=== PATIENT | male | born 1975 | race Caucasian/White ===

== ENCOUNTER 2018-02-19 13:40 | Emergency (ER) | payer OTHER ==
[~2018-02-19 13:40] MED LIST: LISI-613 PO
== END 2018-02-19 14:50 | disposition home or self-care (01) ==
LOC: EDH 13:40
DX: Z46.6 Encounter for fitting and adjustment of urinary device (principal); I10 Essential (primary) hypertension; Z98.890 Other specified postprocedural states; Z72.0 Tobacco use

== ENCOUNTER → 2018-07-12 | Outpatient (CLI) | payer OTHER ==
[~2018-07-12] MED LIST changes: +ACET-66 PO; +LEVO500T2 PO; -LISI-613 PO; +SACU1TAB PO; +SOLI10TA PO
== END | disposition home or self-care (01) ==
LOC: RAH 08:12
PROVIDERS: ATTEND Urology
DX: N13.2 Hydronephrosis with renal and ureteral calculous obstruction (principal)
CPT/HCPCS: 74176

== ENCOUNTER 2018-07-28 08:03 | Day surgery (SDC) | payer OTHER ==
[2018-07-26 15:00] VITALS: BP 114/71
[2018-07-26 15:03] LABS: BASOPHILS % (AUTO) 0.9 % (0.0-5.0); EOSINOPHILS % (AUTO) 2.8 % (0.0-8.0); HEMATOCRIT 42.3 % (42-54); LYMPHOCYTES % (AUTO) 17.4 % (21.0-51.0); MEAN CORPUSCULAR HEMOGLOBIN 26.4 pg (27.0-33.0); MEAN CORPUSCULAR HGB CONC 32.7 g/dL (32.0-36.0); MEAN CORPUSCULAR VOLUME 80.9 fL (79-99); MONOCYTES % (AUTO) 10.8 % (3.0-13.0); NEUTROPHILS % (AUTO) 68.1 % (40.0-77.0); PLATELET COUNT (AUTO) 275 K/uL (130-400); RED BLOOD CELL COUNT(AUTO) 5.23 MIL/uL (4.50-6.20); RED CELL DISTRIBUTION WIDTH 19.1 % (11.0-15.5); WHITE BLOOD COUNT (AUTO) 5.2 K/uL (4.8-10.8)
[2018-07-26 15:04] LABS: APPEARANCE,URINE Clear (CLEAR); BILIRUBIN,URINE Negative (NEGATIVE); COLOR,URINE Yellow (YELLOW); GLUCOSE, URINE (UA) Negative (NEGATIVE); KETONES,URINE Negative (NEGATIVE); LEUKOCYTE ESTERASE ,URINE Large (NEGATIVE); NITRATE,URINE Negative (NEGATIVE); OCCULT BLOOD,URINE Moderate (NEGATIVE); PROTEIN,URINE Negative (NEGATIVE)
[2018-07-26 15:11] LABS: CREATININE 0.7 mg/dL (0.5-1.5); POTASSIUM 4.1 mmol/L (3.5-5.1)
[2018-07-26 15:21] LABS: BACTERIA,URINE Rare /HPF (None Seen); SQUAMOUS EPITHELIAL CELL,UR Few /HPF (0-2)
--- NOTE | 2018-07-27 08:32 | NUR ---
LATE ENTRY: 07/26/17 @[address] LEMA'S OFFICE TO CLARIFY ORDER OF CXR, NO KUB, SPOKE TO YOLANDA. PER YOLANDA, DR. LEMA STATED THE ORDER IS CORRECT IT IS, NO CHANGES.
[~2018-07-28] VITALS: Ht 180.3 cm; Wt 165.6 kg
[2018-07-28] VITALS (15 sets, daily range): BP systolic 109–138; BP diastolic 58–85
[~2018-07-28 08:03] MED LIST changes: +CHOL100040 PO; +GENTAMICIN SULFATE IV PRN; -LEVO500T2 PO; +SODIUM CHLORIDE 0.9% IV PRN
[2018-07-28] MEDS ORDERED: LACTATED RINGERS 1000ML 1,000 ML IV ONE (08:41)
[2018-07-28] MEDS ORDERED: GENTAMICIN SULFATE 320 MG in SODIUM CHLORIDE 0.9% 100 ML IV SCH (08:45)
[2018-07-28] MEDS: ZOSYN 3.375GM+NS 50ML 50 ML IV SCH ×2 (08:45→10:40)
--- NOTE | 2018-07-28 08:49 | NUR ---
NOTE MID LOWER RIGHT LEG WITH SKIN TEAR. SEVERE LYMPHEDEMA TO RIGHT LEG. Addendum: 07/28/18 at 0851 by MG CHILDERS RN RN Amended: Links added.
--- NOTE | 2018-07-28 08:50 | NUR ---
NOTE PT IS ON A SCHEDULE TO SELF CATH. Addendum: 07/28/18 at 0851 by MG CHILDERS RN RN Amended: Links added.
[2018-07-28] MEDS ORDERED: AMOX1TAB15 PO (08:55)
[2018-07-28] MEDS ORDERED: CALC-866 PO (08:55)
[2018-07-28] MEDS ORDERED: FLUC150T6 PO (08:55)
[2018-07-28] MEDS ORDERED: CARV6.25 PO (08:55)
[2018-07-28] MEDS ORDERED: IOHEXOL-350 50ML VIAL IV ONE (09:32)
[2018-07-28] MEDS ORDERED: FENTANYL CITRATE PF 50 MCG/1 ML 2ML VIAL ONE ×4 (09:58→12:31)
[2018-07-28] MEDS ORDERED: LIDOCAINE PF 2% 5ML ABBOJECT ONE (09:58)
[2018-07-28] MEDS ORDERED: PROPOFOL 10 MG/ML 20ML VIAL IV ONE (09:58)
[2018-07-28] MEDS ORDERED: GLYCOPYRROLATE 1 MG/5 ML SYRINGE ONE (11:14)
[2018-07-28] MEDS ORDERED: EPHEDRINE SULFATE 50 MG/ML AMPULE ONE (11:17)
[2018-07-28] MEDS ORDERED: KETOROLAC TROMETHAMINE 30MG/ML ONE (12:29)
--- NOTE | 2018-07-28 14:10 | NUR ---
ASSESSMENT RECEIVED PT FROM PACU STAFF Osmani RODRIGUEZ RN. PT DOING WELL. SEVERE SWELLING TO LOWER EXTREMITIES. SKIN TEAR TO RIGHT POPLITEAL AREA. STATES " HOME HEALTH NURSE DIDN'T PUT ERIC WRAP ON RIGHT." DRSG TO PENIS DRY AND INTACT. STRINGS NOTED TO BE IN PLACE. PT SELF CATHS. INSTRUCTED ON IMPORTANCE OF DRINKING FLUIDS.
--- NOTE | 2018-07-28 14:55 | NUR ---
DISCHARGE ORAL AND WRITTEN DISCHARGE INSTRUCTIONS GIVEN TO PT AND PTS MOTHER ALONG WITH PRESCRIPTION. INSTRUCTED ON IMPORTANCE OF NOT PULLING ON BLACK STRING SO STENT WOULD NOT BE DISCONTINUED. BOTH VERBALIZED UNDERSTANDING. NO OTHER QUESTIONS AT THIS TIME.
--- NOTE | 2018-07-28 16:30 | NUR ---
PT SELF CATHS Addendum: 07/28/18 at 1631 by RENE AMAYA RN RN Amended: Links added.
--- NOTE | 2018-07-28 16:30 | NUR ---
TO LOWER EXTREMITIES Addendum: 07/28/18 at 1631 by RENE AMAYA RN RN Amended: Links added.
== END 2018-07-28 15:00 | disposition home or self-care (01) ==
LOC: DAH 08:03
PROVIDERS: ATTEND Urology
DX: N20.0 Calculus of kidney (principal); E66.01 Morbid (severe) obesity due to excess calories; E78.5 Hyperlipidemia, unspecified; Z98.890 Other specified postprocedural states; Z79.899 Other long term (current) drug therapy; M19.90 Unspecified osteoarthritis, unspecified site; R56.9 Unspecified convulsions; I10 Essential (primary) hypertension; G47.30 Sleep apnea, unspecified
CPT/HCPCS: 36415; 52356; 76000; 80048; 81001; 85025; 87088; A4354; A4358; A4600; A4649 ×2; A6207; C1758; C1769 ×2; C1894; C2617; J1580; J1885; J2001; J2543; J2704; J3010 ×4; J3490 ×2; J7030; J7120; Q9967

== ENCOUNTER → 2018-12-19 | Outpatient (CLI) | payer OTHER ==
[~2018-12-19] MED LIST changes: +AMOX1TAB15 PO; +CALC-866 PO; +CARV6.25 PO; -CHOL100040 PO; +FLUC150T6 PO; -GENTAMICIN SULFATE IV PRN; -SODIUM CHLORIDE 0.9% IV PRN
== END | disposition home or self-care (01) ==
LOC: RAH 09:38
PROVIDERS: ATTEND Urology
DX: N20.0 Calculus of kidney (principal); Z87.442 Personal history of urinary calculi
CPT/HCPCS: 74176

== ENCOUNTER 2019-02-05 09:51 | Inpatient (IN) | payer OTHER ==
[~2019-02-05] VITALS: Ht 180.3 cm; Wt 177.9 kg
[2019-02-05] MEDS ORDERED: MORPHINE SULFATE 4 MG/1ML SYG ONE ×2 (10:25→13:07)
[2019-02-05] MEDS ORDERED: ONDANSETRON HCL 4 MG/2 ML VIAL ONE (10:25)
[2019-02-05 10:27] LABS: BASOPHILS % (AUTO) 0.5 % (0.0-5.0); EOSINOPHILS % (AUTO) 2.4 % (0.0-8.0); HEMATOCRIT 38.7 % (42-54); LYMPHOCYTES % (AUTO) 11.9 % (21.0-51.0); MEAN CORPUSCULAR HGB CONC 34.1 g/dL (32.0-36.0); MEAN CORPUSCULAR VOLUME 82.2 fL (79-99); MONOCYTES % (AUTO) 10.9 % (3.0-13.0); NEUTROPHILS % (AUTO) 74.3 % (40.0-77.0); PLATELET COUNT (AUTO) 328 K/uL (130-400); RED BLOOD CELL COUNT(AUTO) 4.71 MIL/uL (4.50-6.20); RED CELL DISTRIBUTION WIDTH 17.1 % (11.0-15.5); WHITE BLOOD COUNT (AUTO) 9.3 K/uL (4.8-10.8)
[2019-02-05 10:51] LABS: BILIRUBIN,TOTAL 0.3 mg/dL (0.2-1.0); CREATININE 0.9 mg/dL (0.5-1.5); POTASSIUM 4.1 mmol/L (3.5-5.1); TOTAL PROTEIN, SERUM 7.6 g/dL (6.0-8.3)
[2019-02-05] MEDS ORDERED: KETOROLAC TROMETHAMINE 30MG/ML ONE (11:39)
[2019-02-05 11:49] LABS: APPEARANCE,URINE Turbid (CLEAR); BILIRUBIN,URINE Negative (NEGATIVE); COLOR,URINE Yellow (YELLOW); GLUCOSE, URINE (UA) Negative (NEGATIVE); KETONES,URINE Negative (NEGATIVE); LEUKOCYTE ESTERASE ,URINE Large (NEGATIVE); NITRATE,URINE Positive (NEGATIVE); OCCULT BLOOD,URINE Large (NEGATIVE); PROTEIN,URINE POS 2+ mg/dL (NEGATIVE)
[2019-02-05 12:01] LABS: AMORPHOUS SEDIMENT,UR Few /LPF (None Seen); BACTERIA,URINE Many /HPF (None Seen); CALCIUM OXALATE CRYSTALS,UR Few /LPF (None Seen); RBC,URINE >100 /HPF (0-1); TRANSITIONAL EPI CELLS,URINE Few /HPF (None Seen); WBC,URINE >100 /HPF (0-1)
[2019-02-05] MEDS ORDERED: CEFTRIAXONE SODIUM 1 GM ONE (13:07)
[2019-02-05] MEDS ORDERED: SODIUM CHLORIDE 0.9% 50 ML IV ONE (13:08)
[2019-02-05] MEDS ORDERED: SODIUM CHLORIDE 0.9% 1000ML 1,000 ML IV ONE (13:08)
[2019-02-05] MEDS ORDERED: MORPHINE SULFATE 2 MG/ML 1ML SYG IV PRN (14:30)
[2019-02-05] MEDS ORDERED: HYDROMORPHONE HCL 0.5 MG/0.5 ML ML IV PRN (14:30)
[2019-02-05] MEDS: CEFTRIAXONE SODIUM 1 GM IV SCH (14:30)
[2019-02-05] MEDS ORDERED: ACETAMINOPHEN 325 MG TAB PO PRN (14:30)
[2019-02-05] MEDS ORDERED: HYDRALAZINE HCL 20 MG/ML VIAL IV PRN (14:30)
[2019-02-05] MEDS ORDERED: ONDANSETRON HCL 4 MG/2 ML VIAL IV PRN (14:30)
--- NOTE | 2019-02-05 15:25 | NUR ---
DR. GRIGGS PAGED AT THIS TIME, SOFTBALL COACH SPOKE MD ROMAIN PENDING TO CALL BACK, NURSING WILL CONTINUE TO FOLLOW UP.
[2019-02-05] MEDS: SODIUM CHLORIDE 0.9% 1000ML 1,000 ML IV SCH (15:28)
[2019-02-05 15:48] VITALS: BP 143/104
[2019-02-05] MEDS: PHENAZOPYRIDINE HCL 200 MG TABLET PO SCH (17:30)
[2019-02-05] MEDS: FAMOTIDINE 20MG TAB 20 MG TAB PO SCH (19:34)
[2019-02-05] MEDS: TERAZOSIN HCL 5 MG CAPSULE PO SCH (19:34)
[2019-02-05 19:42] VITALS: BP 133/86
[2019-02-06 00:22] VITALS: BP 102/56
[2019-02-06] MEDS: SODIUM CHLORIDE 0.9% 1000ML 1,000 ML IV SCH ×3 (00:48→20:27)
[2019-02-06 04:23] VITALS: BP 115/16
[2019-02-06 06:26] LABS: BASOPHILS % (AUTO) 0.3 % (0.0-5.0); EOSINOPHILS % (AUTO) 0.1 % (0.0-8.0); HEMATOCRIT 37.2 % (42-54); LYMPHOCYTES % (AUTO) 3.7 % (21.0-51.0); MEAN CORPUSCULAR HEMOGLOBIN 27.4 pg (27.0-33.0); MEAN CORPUSCULAR HGB CONC 32.8 g/dL (32.0-36.0); MEAN CORPUSCULAR VOLUME 83.6 fL (79-99); MONOCYTES % (AUTO) 6.3 % (3.0-13.0); NEUTROPHILS % (AUTO) 89.6 % (40.0-77.0); PLATELET COUNT (AUTO) 260 K/uL (130-400); RED BLOOD CELL COUNT(AUTO) 4.45 MIL/uL (4.50-6.20); RED CELL DISTRIBUTION WIDTH 17.1 % (11.0-15.5); WHITE BLOOD COUNT (AUTO) 17.8 K/uL (4.8-10.8)
[2019-02-06 06:39] LABS: CREATININE 1.1 mg/dL (0.5-1.5)
[2019-02-06 07:30] VITALS: BP 115/51
[2019-02-06] MEDS ORDERED: IOHEXOL 350 MG/ML 100ML INFUS..BTL IV ONE (08:38)
--- NOTE | 2019-02-06 09:07 | NUR ---
call dr. connolly's office for the consult since dr. lagunas wanted the service transfer. the office of dr. connolly was notified already
[2019-02-06] MEDS: ENOXAPARIN SODIUM 40 MG/0.4 ML SYRINGE SQ SCH (10:23)
[2019-02-06] MEDS: TAMSULOSIN HCL 0.4 MG CAP.ER.24H PO SCH (10:24)
[2019-02-06] MEDS: PHENAZOPYRIDINE HCL 200 MG TABLET PO SCH ×3 (10:25→17:36)
[2019-02-06] MEDS: FAMOTIDINE 20MG TAB 20 MG TAB PO SCH ×2 (10:25→22:27)
[2019-02-06 11:00] VITALS: BP 137/68
--- NOTE | 2019-02-06 11:00 | NUR ---
pt is having seepage from dressing on right posterior leg ; i have removed the dressing, there is a very foul odor coming from dressing and wound; i cleansed with normal saline then applied 2 abd pads, 4x4 gauze and wrapped with kerlix; 2nd nurse assisted by holding up his leg; pt cindy. proc. well with no c/o pain. pt does have a large area of skin that is putting off the odor and seeping ; pt has dry scaly skin on other parts of his leg. pt has a 2nd smaller ulcer on the back of his left leg that is approx. the size of a quarter and skin is intact and pink in appearance.
--- NOTE | 2019-02-06 12:30 | NUR ---
DR. LEMA RECOMMENDED TO LEAVE THE GARCIA CATH ON HIM.
--- NOTE | 2019-02-06 13:36 | NUR ---
DCP CM met with pt discussed dc plans. Pt is mostly independent w/ADL's prior to admission, lives at home with mother. Pt is a wheelchair bound, has wheelchair, walker, shower chair, home care [employer] h/h once a week. Denies any equipments/services. Pt feels safe to go back home, mother able to assist with transportation and needs as necessary. DC plan to home once stable. CM to cont to follow up. Addendum: 02/06/19 at 1342 by ALEJA IBARRA LVN CM Amended: Links added.
[2019-02-06] MEDS ORDERED: SODIUM CHLORIDE 0.9% 10 ML VIAL ONE (15:25)
--- NOTE | 2019-02-06 15:32 | NUR ---
[facility] CONSULT PATIENT ASSESSED REQUESTED: PATIENT PRESENTS WITH ULCER TO RT CALF POSTERIOR; [facility] RECOMMENDATIONS SUBMITTED. Addendum: 02/06/19 at 1533 by KRISSY DONNELLY LVN LVN W Amended: Links added.
[2019-02-06] MEDS: CEFTRIAXONE SODIUM 1 GM IV SCH (15:37)
[2019-02-06] MEDS: ACETAMINOPHEN-CODEINE 300/30MG TAB PO PRN (15:45)
[2019-02-06 16:00] VITALS: BP 118/72
[2019-02-06] MEDS: HONEY 1 APPL/ML TUBE TP SCH (19:00)
[2019-02-06 20:00] VITALS: BP 120/61
[2019-02-06] MEDS: TERAZOSIN HCL 5 MG CAPSULE PO SCH (22:27)
--- NOTE | 2019-02-06 23:00 | NUR ---
REFUSED BATH WITH PCP. ASKED PATIENT IF HE WANTED TO TAKE A BATH IN THE AM, SAID HE DID NOT ONE, WILL WAIT UNTIL HE IS AT HOME.
[2019-02-07] VITALS: BP 123/53
[2019-02-07 04:00] VITALS: BP 132/62
[2019-02-07 06:01] LABS: HEMATOCRIT 33.2 % (42-54); MEAN CORPUSCULAR HEMOGLOBIN 27.8 pg (27.0-33.0); MEAN CORPUSCULAR HGB CONC 33.7 g/dL (32.0-36.0); MEAN CORPUSCULAR VOLUME 82.5 fL (79-99); PLATELET COUNT (AUTO) 246 K/uL (130-400); RED BLOOD CELL COUNT(AUTO) 4.02 MIL/uL (4.50-6.20); WHITE BLOOD COUNT (AUTO) 9.4 K/uL (4.8-10.8)
[2019-02-07 06:17] LABS: CREATININE 0.8 mg/dL (0.5-1.5); POTASSIUM 3.6 mmol/L (3.5-5.1)
[2019-02-07] MEDS: SODIUM CHLORIDE 0.9% 1000ML 1,000 ML IV SCH (06:27)
[2019-02-07 07:00] VITALS: BP 130/66
[2019-02-07] MEDS: TAMSULOSIN HCL 0.4 MG CAP.ER.24H PO SCH (08:44)
[2019-02-07] MEDS: FAMOTIDINE 20MG TAB 20 MG TAB PO SCH (08:44)
[2019-02-07] MEDS: PHENAZOPYRIDINE HCL 200 MG TABLET PO SCH ×3 (08:45→17:26)
[2019-02-07] MEDS: ENOXAPARIN SODIUM 40 MG/0.4 ML SYRINGE SQ SCH (08:45)
[2019-02-07] MEDS: ACETAMINOPHEN-CODEINE 300/30MG TAB PO PRN (08:56)
[2019-02-07] MEDS ORDERED: **HM** ENTRESTO 24-26MG PO SCH (09:00)
[2019-02-07] MEDS ORDERED: CARVEDILOL 6.25 MG TABLET PO SCH (09:00)
[2019-02-07 11:00] VITALS: BP 143/68
[2019-02-07] MEDS ORDERED: TAMS-1 PO (13:28)
[2019-02-07] MEDS ORDERED: SULF1TAB42 PO (13:28)
--- NOTE | 2019-02-07 14:05 | NUR ---
RD Notification Pt admitted for Ureterlithiasis, UTI. Pt PMH of DM, HTN, Stage III Obesity. Pt tolerating current diet order of Heart Healthy Diet, as per Pt. Pt PO intake 50-75%. Pt reports no GI distress. Pt reports headache at time of visit. Possible diet education at follow up. RD recommends 75gm CC to diet order secondary to PMH of DM. Also recommend Jorge L BID for wound healing Support Recommend Vitamin C and ZnSO4 daily for wound healing support. Pt LBM 02/05/19. Pt monitored labs: Glu 129, Ca 8.3, Alb 3.0. RD to continue to monitor. Please notify RD as additional nutrition concerns arise. Addendum: 02/07/19 at [address] Amended: Links added.
[2019-02-07] MEDS: CEFTRIAXONE SODIUM 1 GM IV SCH (14:30)
[2019-02-07] MEDS: HONEY 1 APPL/ML TUBE TP SCH (17:26)
--- NOTE | 2019-02-07 17:35 | NUR ---
iv access removed and dressing changed to right back leg and medihoney applied to the wound, d/c picture of wound taken
[2019-02-07] MEDS ORDERED: **HM** VIT D3 5000 UNITS PO SCH (21:00)
== END 2019-02-07 17:45 | disposition home or self-care (01) | DRG 690 ==
LOC: EDH 09:51 → EDHIP 12:57 → OBSVTOIN 12:57 → 3AH 14:42
PROVIDERS: ADMIT Internal Medicine Pulmonary Disease; ATTEND Internal Medicine Pulmonary Disease
DX: N13.6 Pyonephrosis (principal); Z68.43 Body mass index [BMI] 50.0-59.9, adult; L97.219 Non-pressure chronic ulcer of right calf with unspecified severity; Q05.4 Unspecified spina bifida with hydrocephalus; K59.00 Constipation, unspecified; I89.0 Lymphedema, not elsewhere classified; E11.9 Type 2 diabetes mellitus without complications; E66.01 Morbid (severe) obesity due to excess calories; F12.90 Cannabis use, unspecified, uncomplicated; N32.81 Overactive bladder; G89.29 Other chronic pain; I10 Essential (primary) hypertension; M19.90 Unspecified osteoarthritis, unspecified site; M41.9 Scoliosis, unspecified; N31.9 Neuromuscular dysfunction of bladder, unspecified; Z99.3 Dependence on wheelchair; Z87.442 Personal history of urinary calculi; Z98.2 Presence of cerebrospinal fluid drainage device; Q66.89 Other specified congenital deformities of feet; Z79.899 Other long term (current) drug therapy
CPT/HCPCS: 36415; 74176; 74400; 80048; 80053; 81001; 82948; 83036; 85025; 85027; 87077; 87088; 87186; 93970; 97039; G0378; J0360; J0696; J1170; J1650; J1885; J2270; J2405; J7030; Q9967

== ENCOUNTER → 2019-02-27 | Outpatient (CLI) | payer OTHER ==
[~2019-02-27] MED LIST changes: -ACET-66 PO; -AMOX1TAB15 PO; -FLUC150T6 PO; -SOLI10TA PO; +SULF1TAB42 PO; +TAMS-1 PO
== END | disposition home or self-care (01) ==
LOC: SHCH 09:53
PROVIDERS: ATTEND Internal Medicine Cardiovascular Disease
DX: I11.0 Hypertensive heart disease with heart failure (principal); I50.22 Chronic systolic (congestive) heart failure; G47.33 Obstructive sleep apnea (adult) (pediatric)
CPT/HCPCS: 78481; A9512

== ENCOUNTER → 2020-02-02 | Outpatient (CLI) | payer OTHER | END | disposition home or self-care (01) | LOC: RAH 12:35 | PROVIDERS: ATTEND Urology | DX: N20.0 Calculus of kidney (principal); M47.816 Spondylosis without myelopathy or radiculopathy, lumbar region | CPT/HCPCS: 74176 ==

== ENCOUNTER 2020-11-02 11:43 | Observation (INO) | payer OTHER ==
[~2020-11-02] VITALS: Ht 180.3 cm; Wt 158.8 kg
[2020-11-02 12:00] VITALS: BP 115/56
[2020-11-02] MEDS ORDERED: HYDROCODONE/ACETAMINOPHEN 10/325 MG TAB PO SCH (12:30)
[2020-11-02 13:51] LABS: BASOPHILS % (AUTO) 0.4 % (0.0-5.0); EOSINOPHILS % (AUTO) 2.1 % (0.0-8.0); HEMATOCRIT 37.1 % (42-54); LYMPHOCYTES % (AUTO) 11.9 % (21.0-51.0); MEAN CORPUSCULAR HEMOGLOBIN 25.1 pg (27.0-33.0); MEAN CORPUSCULAR HGB CONC 30.2 g/dL (32.0-36.0); MEAN CORPUSCULAR VOLUME 83.2 fL (79-99); MONOCYTES % (AUTO) 10.3 % (3.0-13.0); NEUTROPHILS % (AUTO) 74.9 % (40.0-77.0); PLATELET COUNT (AUTO) 301 K/uL (130-400); RED BLOOD CELL COUNT(AUTO) 4.46 MIL/uL (4.50-6.20); RED CELL DISTRIBUTION WIDTH 18.5 % (11.0-15.5); WHITE BLOOD COUNT (AUTO) 10.1 K/uL (4.8-10.8)
[2020-11-02 14:04] LABS: CREATININE 0.7 mg/dL (0.5-1.5); POTASSIUM 3.8 mmol/L (3.5-5.1)
[2020-11-02 14:08] LABS: ALBUMIN 2.4 g/dL (3.5-5.0); BILIRUBIN,TOTAL 0.4 mg/dL (0.2-1.0); CRP QUANTITATIVE 111.1 mg/L (0.00-9.0); TOTAL PROTEIN, SERUM 7.1 g/dL (6.0-8.3)
[2020-11-02 14:26] LABS: B-TYPE NATRIURETIC PEPTIDE 13 pg/mL (0-100)
[2020-11-02] MEDS ORDERED: CLONIDINE HCL 0.1 MG TABLET PO PRN (17:30)
[2020-11-02] MEDS ORDERED: DOCUSATE SODIUM 100 MG CAP PO PRN (17:30)
[2020-11-02] MEDS ORDERED: VANCOMYCIN PROTOCOL PER PHARMACY IV SCH (17:30)
[2020-11-02] MEDS ORDERED: FUROSEMIDE 40MG VIAL IV ONE (17:30)
[2020-11-02] MEDS ORDERED: LIDOCAINE HCL-MPF 1% 2ML VIAL IV PRN (17:30)
[2020-11-02] MEDS ORDERED: DEXTROSE 50%-WATER 50 ML DISP.SYRIN IV PRN (17:30)
[2020-11-02] MEDS ORDERED: ACETAMINOPHEN 650 MG SUPPOSITORY RC PRN (17:30)
[2020-11-02] MEDS ORDERED: GLUCAGON 1MG KIT 1 MG ML IM PRN (17:30)
[2020-11-02] MEDS ORDERED: POTASSIUM CHLORIDE 20MEQ/100ML 100 ML IV PRN (17:30)
[2020-11-02] MEDS ORDERED: POTASSIUM CHLORIDE 10% ELIXIR 20 MEQ/15 ML UDCUP PO PRN (17:30)
[2020-11-02] MEDS ORDERED: ALBUTEROL 0.083% 2.5 MG/3 ML INH IH PRN (17:30)
[2020-11-02] MEDS ORDERED: COMPOUND IV REFRIGERATED 1 EACH IVSOLN MISC PRN (17:30)
[2020-11-02] MEDS ORDERED: ONDANSETRON 4MG INJ IVP PRN (17:30)
[2020-11-02] MEDS ORDERED: ACETAMINOPHEN 325 MG TAB PO PRN (17:30)
[2020-11-02] MEDS ORDERED: IOHEXOL-350 75 ML VIAL IV ONE (17:49)
[2020-11-02] MEDS ORDERED: VANCOMYCIN 2GM/500ML NS IV ONE ×2 (18:00)
[2020-11-02 18:18] VITALS: BP 135/81
[2020-11-02 18:37] LABS: ABG BASE EXCESS 2.1 mmol/L (-2.0-3.0); ABG HCO3 27.1 mmol/L (21.0-28.0); ABG OXYGEN SATURATION 92.1 % (95.0-99.0); ABG PCO2 44 mmHg (35-48)
[2020-11-02] MEDS ORDERED: IOHEXOL 350 MG/ML 100ML INFUS..BTL IV ONE (18:41)
[2020-11-02 19:15] VITALS: BP 130/60
[2020-11-02] MEDS: INSULIN HUMULIN R 100 UNIT/ML 3ML SQ SCH (20:47)
[2020-11-02] MEDS: FAMOTIDINE 20MG TAB PO SCH (20:53)
[2020-11-02] MEDS: ZOSYN 3.375GM +NS 50ML IV SCH (22:19)
[2020-11-03 01:10] LABS: APPEARANCE,URINE Cloudy (CLEAR); BILIRUBIN,URINE Negative (NEGATIVE); COLOR,URINE Yellow (YELLOW); GLUCOSE, URINE (UA) Negative (NEGATIVE); KETONES,URINE Negative (NEGATIVE); LEUKOCYTE ESTERASE ,URINE Large (NEGATIVE); NITRATE,URINE Positive (NEGATIVE); OCCULT BLOOD,URINE Moderate (NEGATIVE); PROTEIN,URINE Negative (NEGATIVE)
[2020-11-03] MEDS: VANCOMYCIN KIT 1 GM/250 ML IV.KIT IV SCH ×3 (01:16→18:04)
[2020-11-03] MEDS: 0.9% NACL 250ML 250 ML IV SCH ×3 (01:17→18:04)
[2020-11-03 01:19] LABS: AMPHET/METH SCREEN,URINE NEGATIVE (NEGATIVE); BARBITURATE SCREEN, URINE NEGATIVE (NEGATIVE); BENZODIAZEPINES SCREEN,URINE NEGATIVE (NEGATIVE); CANNABINOID SCREEN,URINE POSITIVE (NEGATIVE); COCAINE SCREEN,URINE NEGATIVE (NEGATIVE); OPIATE SCREEN,URINE NEGATIVE (NEGATIVE); PHENCYCLIDINE SCREEN,URINE NEGATIVE (NEGATIVE)
[2020-11-03 02:23] LABS: BACTERIA,URINE Moderate /HPF (None Seen); RBC,URINE 0-1 /HPF (0-1); WBC,URINE 51-100 /HPF (0-1)
[2020-11-03 02:24] LABS: SQUAMOUS EPITHELIAL CELL,UR 0-2 /HPF (0-2)
[2020-11-03 03:39] VITALS: BP 128/58
[2020-11-03] MEDS ORDERED: 0.9%NACL 50ML 50 ML IV ONE (05:08)
[2020-11-03] MEDS: ZOSYN 3.375GM +NS 50ML IV SCH ×3 (05:21→21:05)
[2020-11-03 05:51] LABS: ABG BASE EXCESS 1.7 mmol/L (-2.0-3.0); ABG HCO3 26.8 mmol/L (21.0-28.0); ABG OXYGEN SATURATION 97.3 % (95.0-99.0); ABG PCO2 44 mmHg (35-48)
[2020-11-03 05:54] LABS: HEMATOCRIT 35.1 % (42-54); MEAN CORPUSCULAR HGB CONC 29.9 g/dL (32.0-36.0); MEAN CORPUSCULAR VOLUME 83.6 fL (79-99); RED BLOOD CELL COUNT(AUTO) 4.2 MIL/uL (4.50-6.20); RED CELL DISTRIBUTION WIDTH 18.6 % (11.0-15.5)
[2020-11-03 06:08] LABS: CREATININE 0.7 mg/dL (0.5-1.5); MAGNESIUM 2.1 mg/dL (1.80-2.40); PHOSPHORUS 4.2 mg/dL (2.5-4.9); POTASSIUM 3.5 mmol/L (3.5-5.1)
[2020-11-03] MEDS: INSULIN HUMULIN R 100 UNIT/ML 3ML SQ SCH ×4 (06:10→21:00)
[2020-11-03 06:17] LABS: PROTHROMBIN TIME 10.9 SEC (9.6-11.6)
[2020-11-03 06:32] LABS: HEMOGLOBIN A1C 7.9 % (4.0-6.0)
[2020-11-03 08:00] VITALS: BP 129/70
[2020-11-03] MEDS: CARVEDILOL 25 MG TABLET PO SCH ×2 (10:35→21:06)
[2020-11-03] MEDS: ENOXAPARIN SODIUM 40 MG/0.4 ML SYRINGE SQ SCH (10:35)
[2020-11-03] MEDS: FAMOTIDINE 20MG TAB PO SCH ×2 (10:35→21:07)
[2020-11-03] MEDS: KCL 20 MEQ ERTAB PO PRN (10:42)
[2020-11-03 12:00] VITALS: BP 116/60
[2020-11-03] MEDS ORDERED: FUROSEMIDE 40MG VIAL IV SCH (12:00)
[2020-11-03] MEDS: KETOROLAC 30MG VIAL (30MG/ML) IM PRN ×2 (12:43→22:08)
[2020-11-03 16:00] VITALS: BP 119/65
[2020-11-03 20:47] VITALS: BP 107/54
[2020-11-03] MEDS: FUROSEMIDE 20MG VIAL IV SCH (21:05)
[2020-11-04] VITALS (7 sets, daily range): BP systolic 94–124; BP diastolic 25–64
[2020-11-04] MEDS: VANCOMYCIN KIT 1 GM/250 ML IV.KIT IV SCH ×3 (02:05→19:35)
[2020-11-04] MEDS: 0.9% NACL 250ML 250 ML IV SCH ×3 (02:05→19:35)
[2020-11-04] MEDS: ZOSYN 3.375GM +NS 50ML IV SCH ×3 (04:30→21:18)
[2020-11-04] MEDS: INSULIN HUMULIN R 100 UNIT/ML 3ML SQ SCH ×4 (05:59→21:21)
[2020-11-04] MEDS ORDERED: FLAX100020 PO (07:52)
[2020-11-04] MEDS ORDERED: CARV25TA PO (07:52)
[2020-11-04] MEDS: CARVEDILOL 25 MG TABLET PO SCH ×2 (09:00→21:19)
[2020-11-04] MEDS ORDERED: VALSARTAN PO SCH (09:00)
[2020-11-04] MEDS: FLAXSEED OIL 1000 MG PO SCH ×2 (09:00→21:00)
[2020-11-04] MEDS ORDERED: SACUBITRIL PO SCH (09:00)
[2020-11-04] MEDS: FUROSEMIDE 20MG VIAL IV SCH ×2 (10:35→21:18)
[2020-11-04] MEDS: FAMOTIDINE 20MG TAB PO SCH ×2 (10:35→21:19)
[2020-11-04] MEDS: ENOXAPARIN SODIUM 40 MG/0.4 ML SYRINGE SQ SCH (10:35)
[2020-11-04] MEDS: KCL 20 MEQ ERTAB PO PRN ×3 (15:08→21:19)
[2020-11-04] MEDS: HYDROCODONE/ACETAMINOPHEN 10/325 MG TAB PO PRN ×2 (15:08→21:20)
[2020-11-04] MEDS ORDERED: DOXY100C5 PO (17:54)
[2020-11-04] MEDS ORDERED: FURO40TA7 PO (17:54)
[2020-11-04] MEDS ORDERED: VALS40TA11 PO (17:58)
[2020-11-04] MEDS ORDERED: CARV12.580 PO (18:00)
[2020-11-04] MEDS: CHOLECALCIFEROL 5000 UNIT PO SCH (21:00)
[2020-11-05] VITALS (7 sets, daily range): BP systolic 82–133; BP diastolic 35–68
[2020-11-05] MEDS: 0.9% NACL 250ML 250 ML IV SCH ×2 (01:52→08:34)
[2020-11-05] MEDS: VANCOMYCIN KIT 1 GM/250 ML IV.KIT IV SCH ×2 (01:52→08:34)
[2020-11-05 04:18] LABS: CREATININE 0.8 mg/dL (0.5-1.5); POTASSIUM 3.8 mmol/L (3.5-5.1)
[2020-11-05] MEDS: ZOSYN 3.375GM +NS 50ML IV SCH ×2 (04:57→12:02)
[2020-11-05] MEDS: INSULIN HUMULIN R 100 UNIT/ML 3ML SQ SCH ×2 (06:13→11:23)
[2020-11-05] MEDS: FAMOTIDINE 20MG TAB PO SCH (08:33)
[2020-11-05] MEDS: FUROSEMIDE 20MG VIAL IV SCH (08:34)
[2020-11-05] MEDS: FLAXSEED OIL 1000 MG PO SCH (08:35)
[2020-11-05] MEDS: ENOXAPARIN SODIUM 40 MG/0.4 ML SYRINGE SQ SCH (08:35)
[2020-11-05] MEDS ORDERED: LOSARTAN 50 MG TABLET PO SCH (09:00)
[2020-11-05] MEDS: KETOROLAC 30MG VIAL (30MG/ML) IM PRN (15:01)
== END 2020-11-05 19:10 | disposition home or self-care (01) ==
LOC: EDH 11:43 → OBSVTOIN 17:10 → EDHIP 17:10 → INTOOBSV 17:10 → 4BH 23:45
PROVIDERS: ADMIT Internal Medicine Critical Care Medicine; ATTEND Internal Medicine Critical Care Medicine
DX: J18.9 Pneumonia, unspecified organism (principal); Z20.822 Contact with and (suspected) exposure to COVID-19; I50.9 Heart failure, unspecified; G47.33 Obstructive sleep apnea (adult) (pediatric); I25.10 Atherosclerotic heart disease of native coronary artery without angina pectoris; I89.0 Lymphedema, not elsewhere classified; M41.9 Scoliosis, unspecified; J98.4 Other disorders of lung; Q05.9 Spina bifida, unspecified; N39.0 Urinary tract infection, site not specified; Q66.89 Other specified congenital deformities of feet; I83.009 Varicose veins of unspecified lower extremity with ulcer of unspecified site; F31.9 Bipolar disorder, unspecified; E11.9 Type 2 diabetes mellitus without complications; R60.0 Localized edema; Z79.899 Other long term (current) drug therapy; Z98.2 Presence of cerebrospinal fluid drainage device
CPT/HCPCS: 36415 ×4; 36600; 71045; 71275; 80048 ×2; 80053; 80202 ×2; 80305; 81001; 82435; 82803 ×2; 82947; 82948 ×12; 83036; 83605; 83735; 83880; 84100; 84132; 84145; 84295; 84484; 85018; 85025; 85027; 85610; 86140; 87040 ×2; 87077; 87088; 87186; 87635; 87804 ×2; 93005 ×2; 93306; 93970; 94660 ×2; 96365; 96366 ×4; 96367; 96368; 96372 ×3; 96375; 96376 ×3; 99285; C9803; G0378 ×73; J1650 ×3; J1815; J1885 ×3; J1940 ×6; J2543 ×9; J3370 ×9; J7040; J7050 ×6; Q9967

== ENCOUNTER 2020-11-17 00:34 | Observation (INO) | payer OTHER ==
[~2020-11-17] VITALS: Ht 180.3 cm; Wt 154.2 kg
[~2020-11-17 00:34] MED LIST changes: +CARV12.580 PO; +CARV25TA PO; -CARV6.25 PO; +DOXY100C2 PO; +FLAX100020 PO; +FURO40TA7 PO; -SACU1TAB PO; -SULF1TAB42 PO; -TAMS-1 PO; +VALS40TA11 PO
[2020-11-17 00:35] VITALS: BP 139/68
[2020-11-17 01:37] VITALS: BP 131/61
[2020-11-17] MEDS ORDERED: FUROSEMIDE 100MG VIAL IVP ONE (02:30)
[2020-11-17] MEDS ORDERED: FUROSEMIDE 40MG VIAL ONE (02:40)
[2020-11-17 03:36] LABS: BASOPHILS % (AUTO) 0.4 % (0.0-5.0); HEMATOCRIT 36.3 % (42-54); LYMPHOCYTES % (AUTO) 14.9 % (21.0-51.0); MEAN CORPUSCULAR HEMOGLOBIN 24.6 pg (27.0-33.0); MEAN CORPUSCULAR HGB CONC 30.6 g/dL (32.0-36.0); MEAN CORPUSCULAR VOLUME 80.5 fL (79-99); MONOCYTES % (AUTO) 10.2 % (3.0-13.0); NEUTROPHILS % (AUTO) 69.9 % (40.0-77.0); PLATELET COUNT (AUTO) 357 K/uL (130-400); RED BLOOD CELL COUNT(AUTO) 4.51 MIL/uL (4.50-6.20); RED CELL DISTRIBUTION WIDTH 18.5 % (11.0-15.5); WHITE BLOOD COUNT (AUTO) 9.9 K/uL (4.8-10.8)
[2020-11-17 03:39] LABS: APPEARANCE,URINE Cloudy (CLEAR); BILIRUBIN,URINE Negative (NEGATIVE); COLOR,URINE Yellow (YELLOW); GLUCOSE, URINE (UA) Negative (NEGATIVE); KETONES,URINE Negative (NEGATIVE); LEUKOCYTE ESTERASE ,URINE Large (NEGATIVE); NITRATE,URINE Positive (NEGATIVE); OCCULT BLOOD,URINE Small (NEGATIVE); PROTEIN,URINE Trace mg/dL (NEGATIVE)
[2020-11-17 03:48] LABS: POTASSIUM 3.4 mmol/L (3.5-5.1)
[2020-11-17 03:52] LABS: ALBUMIN 2.4 g/dL (3.5-5.0); BILIRUBIN,TOTAL 0.2 mg/dL (0.2-1.0); TOTAL PROTEIN, SERUM 6.9 g/dL (6.0-8.3)
[2020-11-17 04:03] LABS: BACTERIA,URINE Many /HPF (None Seen); SQUAMOUS EPITHELIAL CELL,UR Rare /HPF (0-2); WBC,URINE 26-50 /HPF (0-1)
[2020-11-17] MEDS ORDERED: VANCOMYCIN KIT 250 ML IV ONE (05:00)
[2020-11-17] MEDS ORDERED: VANCOMYCIN 1G VIAL IVPB SCH (05:00)
[2020-11-17] MEDS ORDERED: 0.9% NACL 250ML IVPB SCH (05:00)
[2020-11-17] MEDS ORDERED: VANCOMYCIN PROTOCOL PER PHARMACY IV SCH (05:00)
[2020-11-17] MEDS ORDERED: 0.9%NACL 100ML 100 ML ONE ×2 (05:29→14:45)
[2020-11-17] MEDS ORDERED: ONDANSETRON 4MG INJ IV PRN (05:30)
[2020-11-17] MEDS ORDERED: HYDRALAZINE HCL 10 MG TABLET PO PRN (05:30)
[2020-11-17] MEDS: CEFEPIME HCL 2 GM VIAL IVP SCH ×3 (05:30→20:21)
[2020-11-17] MEDS ORDERED: MAG/ALUM/SIMETH 30 ML UDCUP PO PRN (05:30)
[2020-11-17] MEDS ORDERED: LACTULOSE 20 GM/30 ML UDCUP PO PRN (05:30)
[2020-11-17] MEDS ORDERED: KCL 20 MEQ ERTAB PO ONE (05:30)
[2020-11-17] MEDS ORDERED: ACETAMINOPHEN 325 MG TAB PO PRN ×2 (05:30)
[2020-11-17] MEDS ORDERED: NITROGLYCERIN 0.4 MG SL TAB SL PRN (05:30)
[2020-11-17] MEDS ORDERED: DEXTROSE 50%-WATER 50 ML DISP.SYRIN IV PRN (05:30)
[2020-11-17] MEDS ORDERED: POTASSIUM CHLORIDE 20MEQ/100ML 100 ML IV PRN (05:30)
[2020-11-17] MEDS ORDERED: GLUCAGON 1MG KIT 1 MG ML IM PRN (05:30)
[2020-11-17] MEDS ORDERED: ZOLPIDEM TARTRATE 5 MG TAB PO PRN (05:30)
[2020-11-17] MEDS ORDERED: POTASSIUM CHLORIDE 10% ELIXIR 20 MEQ/15 ML UDCUP PO PRN (05:30)
[2020-11-17] MEDS ORDERED: GUAIFENESIN-DM 200/20 MG 10 ML PO PRN (05:30)
[2020-11-17] MEDS: ACETAMINOPHEN WITH CODEINE 1 TAB TAB PO PRN ×2 (05:52→20:23)
[2020-11-17] MEDS: HEPARIN 5,000 UNIT VIAL SQ SCH ×2 (05:59→18:13)
[2020-11-17 06:07] VITALS: BP 107/46
[2020-11-17] MEDS: INSULIN HUMULIN R 100 UNIT/ML 3ML SQ SCH ×4 (07:30→20:22)
[2020-11-17] MEDS ORDERED: COMPOUND IV REFRIGERATED 1 EACH IVSOLN MISC PRN (07:30)
[2020-11-17] MEDS ORDERED: VANCOMYCIN 2GM/500ML NS IV SCH ×2 (07:30)
[2020-11-17] MEDS: FUROSEMIDE 40 MG TABLET PO SCH (09:00)
[2020-11-17] MEDS: CARVEDILOL 25 MG TABLET PO SCH ×2 (09:00→20:21)
[2020-11-17] MEDS: FLAXSEED OIL 1000 MG PO SCH ×2 (09:00→20:21)
[2020-11-17] MEDS ORDERED: HEPARIN 5,000 UNIT VIAL SQ SCH (09:00)
[2020-11-17] MEDS: LOSARTAN 25 MG TABLET PO SCH (09:00)
[2020-11-17] MEDS: PANTOPRAZOLE 40 MG/VIAL IVP SCH ×2 (09:00→20:20)
[2020-11-17] MEDS: VANCOMYCIN 1.75GM/250ML NS IV SCH ×4 (14:00→21:14)
[2020-11-17 16:00] VITALS: BP 107/57
[2020-11-17 19:34] VITALS: BP 111/56
[2020-11-17] MEDS: CHOLECALCIFEROL 5000 UNIT PO SCH (20:21)
[2020-11-17 22:20] VITALS: BP 104/51
[2020-11-17] MEDS ORDERED: PIP/TAZ ZOSYN 3.375G 3.375 GM VIAL IVPB SCH (22:30)
[2020-11-17] MEDS: ZOSYN 3.375GM+NS 50ML 50 ML IV SCH (23:41)
[2020-11-18 03:52] VITALS: BP 124/54
[2020-11-18] MEDS: VANCOMYCIN 1.75GM/250ML NS IV SCH ×6 (06:00→21:43)
[2020-11-18] MEDS: HEPARIN 5,000 UNIT VIAL SQ SCH ×2 (06:01→18:06)
[2020-11-18] MEDS: ZOSYN 3.375GM+NS 50ML 50 ML IV SCH ×3 (06:37→21:43)
[2020-11-18] MEDS: INSULIN HUMULIN R 100 UNIT/ML 3ML SQ SCH ×4 (06:55→20:09)
[2020-11-18 07:30] VITALS: BP 109/66
[2020-11-18 07:50] LABS: HEMATOCRIT 36.1 % (42-54); MEAN CORPUSCULAR HEMOGLOBIN 24.5 pg (27.0-33.0); MEAN CORPUSCULAR HGB CONC 29.6 g/dL (32.0-36.0); MEAN CORPUSCULAR VOLUME 82.8 fL (79-99); RED BLOOD CELL COUNT(AUTO) 4.36 MIL/uL (4.50-6.20); RED CELL DISTRIBUTION WIDTH 18.6 % (11.0-15.5); WHITE BLOOD COUNT (AUTO) 7.3 K/uL (4.8-10.8)
[2020-11-18 08:02] LABS: CREATININE 0.8 mg/dL (0.5-1.5); POTASSIUM 3.7 mmol/L (3.5-5.1)
[2020-11-18] MEDS: FLAXSEED OIL 1000 MG PO SCH ×2 (09:00→21:06)
[2020-11-18] MEDS: LOSARTAN 25 MG TABLET PO SCH (09:52)
[2020-11-18] MEDS: CARVEDILOL 25 MG TABLET PO SCH ×2 (09:53→21:05)
[2020-11-18] MEDS: PANTOPRAZOLE 40 MG/VIAL IVP SCH ×2 (09:53→21:04)
[2020-11-18] MEDS: FUROSEMIDE 40 MG TABLET PO SCH (09:59)
[2020-11-18 11:00] VITALS: BP 139/59
[2020-11-18 16:00] VITALS: BP 108/61
[2020-11-18] MEDS: KCL 20 MEQ ERTAB PO PRN ×2 (18:04→21:05)
[2020-11-18 20:00] VITALS: BP 108/58
[2020-11-18] MEDS: ACETAMINOPHEN WITH CODEINE 1 TAB TAB PO PRN (21:05)
[2020-11-18] MEDS: SODIUM HYPOCHLORITE 0.5% [FULL STRENGTH] 473 ML TOPICAL SOLN TP SCH (21:06)
[2020-11-18] MEDS: CHOLECALCIFEROL 5000 UNIT PO SCH (21:06)
[2020-11-19] VITALS (7 sets, daily range): BP systolic 98–115; BP diastolic 43–63
[2020-11-19] MEDS: ACETAMINOPHEN WITH CODEINE 1 TAB TAB PO PRN ×2 (02:59→23:32)
[2020-11-19] MEDS: INSULIN HUMULIN R 100 UNIT/ML 3ML SQ SCH ×4 (06:02→21:00)
[2020-11-19] MEDS: ZOSYN 3.375GM+NS 50ML 50 ML IV SCH ×3 (06:05→23:43)
[2020-11-19] MEDS: HEPARIN 5,000 UNIT VIAL SQ SCH (06:06)
[2020-11-19] MEDS: VANCOMYCIN 1.75GM/250ML NS IV SCH ×6 (06:53→15:19)
[2020-11-19] MEDS: FLAXSEED OIL 1000 MG PO SCH ×2 (09:00→21:00)
[2020-11-19] MEDS: PANTOPRAZOLE 40 MG/VIAL IVP SCH ×2 (09:50→20:15)
[2020-11-19] MEDS: FUROSEMIDE 40 MG TABLET PO SCH (09:51)
[2020-11-19] MEDS: LOSARTAN 25 MG TABLET PO SCH (09:51)
[2020-11-19] MEDS: CARVEDILOL 25 MG TABLET PO SCH ×2 (09:52→20:24)
[2020-11-19] MEDS: SODIUM HYPOCHLORITE 0.5% [FULL STRENGTH] 473 ML TOPICAL SOLN TP SCH ×3 (09:53→21:00)
[2020-11-19] MEDS: VANCOMYCIN 1G 1.5 GM in 0.9% NACL 250ML 250 ML IV SCH ×2 (15:21→23:34)
[2020-11-19] MEDS ORDERED: LACTULOSE 20 GM/30 ML UDCUP PO PRN (15:30)
[2020-11-19] MEDS ORDERED: HONEY 1 APPL/ML TUBE TP ONE (18:19)
[2020-11-19] MEDS: CHOLECALCIFEROL 5000 UNIT PO SCH (21:00)
[2020-11-20] MEDS: HEPARIN 5,000 UNIT VIAL SQ SCH (00:02)
[2020-11-20 03:37] VITALS: BP 110/52
[2020-11-20 05:29] LABS: HEMATOCRIT 34.2 % (42-54); MEAN CORPUSCULAR HEMOGLOBIN 24.6 pg (27.0-33.0); MEAN CORPUSCULAR HGB CONC 29.8 g/dL (32.0-36.0); MEAN CORPUSCULAR VOLUME 82.6 fL (79-99); RED BLOOD CELL COUNT(AUTO) 4.14 MIL/uL (4.50-6.20); RED CELL DISTRIBUTION WIDTH 18.1 % (11.0-15.5); WHITE BLOOD COUNT (AUTO) 6.8 K/uL (4.8-10.8)
[2020-11-20 05:37] LABS: POTASSIUM 3.8 mmol/L (3.5-5.1)
[2020-11-20 05:56] LABS: CREATININE 0.7 mg/dL (0.5-1.5)
[2020-11-20] MEDS: ZOSYN 3.375GM+NS 50ML 50 ML IV SCH (06:32)
[2020-11-20] MEDS: INSULIN HUMULIN R 100 UNIT/ML 3ML SQ SCH (06:33)
[2020-11-20] MEDS: PANTOPRAZOLE 40 MG/VIAL IVP SCH (08:54)
[2020-11-20] MEDS: LOSARTAN 25 MG TABLET PO SCH (08:55)
[2020-11-20] MEDS: FUROSEMIDE 40 MG TABLET PO SCH (08:55)
[2020-11-20] MEDS: CARVEDILOL 25 MG TABLET PO SCH (08:56)
[2020-11-20] MEDS: SODIUM HYPOCHLORITE 0.5% [FULL STRENGTH] 473 ML TOPICAL SOLN TP SCH ×2 (09:00→14:00)
[2020-11-20] MEDS ORDERED: HONEY 1 APPL/ML TUBE TP SCH (09:00)
[2020-11-20] MEDS: FLAXSEED OIL 1000 MG PO SCH (09:00)
[2020-11-20 09:15] VITALS: BP 109/41
[2020-11-20 11:48] VITALS: BP 118/51
[2020-11-20] MEDS: VANCOMYCIN 1G 1.5 GM in 0.9% NACL 250ML 250 ML IV SCH (14:00)
== END 2020-11-20 18:50 ==
LOC: EDH 00:34 → EDHIP 04:42 → 3DH 21:35
PROVIDERS: ADMIT Internal Medicine Critical Care Medicine; ATTEND Internal Medicine Critical Care Medicine
DX: I83.019 Varicose veins of right lower extremity with ulcer of unspecified site (principal); Z20.822 Contact with and (suspected) exposure to COVID-19; I83.028 Varicose veins of left lower extremity with ulcer other part of lower leg; L97.819 Non-pressure chronic ulcer of other part of right lower leg with unspecified severity; L97.828 Non-pressure chronic ulcer of other part of left lower leg with other specified severity; E66.2 Morbid (severe) obesity with alveolar hypoventilation; Q66.89 Other specified congenital deformities of feet; I10 Essential (primary) hypertension; E11.9 Type 2 diabetes mellitus without complications; M41.9 Scoliosis, unspecified; Q05.9 Spina bifida, unspecified; N39.0 Urinary tract infection, site not specified; B96.1 Klebsiella pneumoniae [K. pneumoniae] as the cause of diseases classified elsewhere; R33.8 Other retention of urine; J98.4 Other disorders of lung; E78.00 Pure hypercholesterolemia, unspecified; F12.90 Cannabis use, unspecified, uncomplicated; F31.9 Bipolar disorder, unspecified; Z79.899 Other long term (current) drug therapy; Z98.890 Other specified postprocedural states; Z68.42 Body mass index [BMI] 45.0-49.9, adult
CPT/HCPCS: 36415 ×4; 71045; 72131; 80048 ×2; 80053; 80202 ×3; 81001; 82948 ×13; 83880; 84443; 84484; 85025; 85027 ×2; 87077; 87088; 87186; 87635; 87804 ×2; 93005; 96365; 96366 ×4; 96367; 96372 ×4; 96375; 96376 ×4; 97039; 97161; 97530 ×2; 99285; C9113 ×7; G0378 ×84; G8981; G8982; G8983; J0692 ×2; J1644 ×6; J1815; J1940 ×2; J2543 ×8; J3370 ×6; J7040; J7050 ×5

== ENCOUNTER 2021-08-08 13:10 | Emergency (ER) | payer OTHER ==
[~2021-08-08] VITALS: Ht 180.3 cm; Wt 208.7 kg
[2021-08-08] MEDS ORDERED: LIDOCAINE HCL MPF 1% 5ML VIAL ONE (13:36)
[2021-08-08] MEDS ORDERED: TETANUS/DIPHTHERIA TOXOID [ADULT] 0.5 ML VIAL IM ONE (14:00)
[2021-08-08] MEDS ORDERED: CEPHALEXIN 500 MG CAPSULE PO ONE (14:00)
[2021-08-08] MEDS ORDERED: CEPH500B PO (14:25)
[2021-08-08 15:21] VITALS: BP 144/88
== END 2021-08-08 15:22 | disposition home or self-care (01) ==
LOC: EDH 13:10
DX: S81.812A Laceration without foreign body, left lower leg, initial encounter (principal); E11.9 Type 2 diabetes mellitus without complications; E78.00 Pure hypercholesterolemia, unspecified; I10 Essential (primary) hypertension; Z98.890 Other specified postprocedural states; W26.9XXA Contact with unspecified sharp object(s), initial encounter; Y93.9 Activity, unspecified; Y92.9 Unspecified place or not applicable; Y99.9 Unspecified external cause status
CPT/HCPCS: 12002; 90471; 90714; 99283; J3490; 96372

== ENCOUNTER 2021-08-22 12:43 | Inpatient (IN) | payer OTHER ==
[~2021-08-22] VITALS: Ht 180.3 cm; Wt 207.6 kg
[~2021-08-22 12:43] MED LIST changes: -CALC-866 PO; -CARV12.580 PO; -CARV25TA PO; +CEPH500B PO; -DOXY100C2 PO; -FLAX100020 PO; -FURO40TA7 PO; -VALS40TA11 PO
[2021-08-22 13:22] LABS: BASOPHILS % (AUTO) 0.5 % (0.0-5.0); EOSINOPHILS % (AUTO) 0.9 % (0.0-8.0); HEMATOCRIT 37.5 % (42-54); LYMPHOCYTES % (AUTO) 25.6 % (21.0-51.0); MEAN CORPUSCULAR HEMOGLOBIN 27.9 pg (27.0-33.0); MEAN CORPUSCULAR HGB CONC 30.4 g/dL (32.0-36.0); MEAN CORPUSCULAR VOLUME 91.7 fL (79-99); MONOCYTES % (AUTO) 12.7 % (3.0-13.0); NEUTROPHILS % (AUTO) 58.7 % (40.0-77.0); NUCLEATED RED BLOOD CELLS 4.1 % (0.0-0.19); PLATELET COUNT (AUTO) 283 K/uL (130-400); RED BLOOD CELL COUNT(AUTO) 4.09 MIL/uL (4.50-6.20); WHITE BLOOD COUNT (AUTO) 8.1 K/uL (4.8-10.8)
[2021-08-22 13:52] LABS: CREATININE 0.6 mg/dL (0.5-1.5); POTASSIUM 3.7 mmol/L (3.5-5.1)
[2021-08-22 13:55] LABS: APPEARANCE,URINE CLOUDY (CLEAR); BILIRUBIN,URINE NEGATIVE (NEGATIVE); COLOR,URINE YELLOW (YELLOW); GLUCOSE, URINE (UA) NEGATIVE (NEGATIVE); KETONES,URINE NEGATIVE (NEGATIVE); LEUKOCYTE ESTERASE ,URINE LARGE (NEGATIVE); NITRATE,URINE NEGATIVE (NEGATIVE); OCCULT BLOOD,URINE LARGE (NEGATIVE); PH,URINE 7.5 (5.0-8.0); PROTEIN,URINE 100 mg/dL (NEGATIVE)
[2021-08-22 13:57] LABS: ALBUMIN 2.5 g/dL (3.5-5.0); BILIRUBIN,TOTAL 0.8 mg/dL (0.2-1.0); PROTHROMBIN TIME 10.9 SEC (9.6-11.6); TOTAL PROTEIN, SERUM 6.8 g/dL (6.0-8.3)
[2021-08-22 13:59] LABS: PARTIAL THROMBOPLASTIN TIME 24.2 SEC (26.3-35.5)
[2021-08-22 14:26] LABS: ABG BASE EXCESS 1.3 mmol/L (-2.0-3.0); ABG HCO3 32.5 mmol/L (21.0-28.0); ABG OXYGEN SATURATION 96.9 % (95.0-99.0); ABG PCO2 87 mmHg (35-48)
[2021-08-22] MEDS ORDERED: CEFTRIAXONE 2GM VIAL ONE (14:26)
[2021-08-22 14:27] LABS: BACTERIA,URINE Many /HPF (None Seen)
[2021-08-22 14:29] LABS: TRIPLE PHOSPHATE CRYSTAL,UR Few /LPF (None Seen)
[2021-08-22] MEDS ORDERED: CEFTRIAXONE 2GM VIAL IVP SCH (14:30)
[2021-08-22] MEDS ORDERED: ONDANSETRON 4MG INJ IVP PRN (16:30)
[2021-08-22] MEDS ORDERED: IPRATROPIUM/ALBUTEROL SULFATE 3 ML SOLUTION IH PRN (16:30)
[2021-08-22] MEDS: SOLU-MEDROL 125MG VIAL IVP SCH (16:38)
[2021-08-22] MEDS: FAMOTIDINE 20MG VIAL IV SCH (20:46)
[2021-08-22 21:47] LABS: ABG BASE EXCESS 7.5 mmol/L (-2.0-3.0); ABG HCO3 37.6 mmol/L (21.0-28.0); ABG OXYGEN SATURATION 90.6 % (95.0-99.0); ABG PCO2 86 mmHg (35-48)
[2021-08-22] MEDS: CEFTRIAXONE 1G VIAL IVP SCH (21:56)
[2021-08-22 22:45] VITALS: BP 131/60
[2021-08-23] MEDS ORDERED: 0.9% NACL 250ML 250 ML ONE ×2 (00:12→08:29)
[2021-08-23] MEDS: SOLU-MEDROL 125MG VIAL IVP SCH ×2 (00:15→08:40)
[2021-08-23] MEDS: ENOXAPARIN SODIUM 40 MG/0.4 ML SYRINGE SQ SCH ×2 (03:00→09:00)
[2021-08-23] MEDS ORDERED: NITROGLYCERIN 0.4 MG SL TAB SL PRN (03:30)
[2021-08-23] MEDS ORDERED: HYDRALAZINE HCL 10 MG TABLET PO PRN (03:30)
[2021-08-23] MEDS ORDERED: GUAIFENESIN-DM 200/20 MG 10 ML PO PRN (03:30)
[2021-08-23] MEDS ORDERED: MAG/ALUM/SIMETH 30 ML UDCUP PO PRN (03:30)
[2021-08-23] MEDS ORDERED: LABETALOL 20MG SYG IV PRN (03:30)
[2021-08-23] MEDS ORDERED: LACTULOSE 20 GM/30 ML UDCUP PO PRN (03:30)
[2021-08-23] MEDS ORDERED: ACETAMINOPHEN 325 MG TAB PO PRN (03:30)
[2021-08-23] MEDS ORDERED: ONDANSETRON 4MG INJ IV PRN (03:30)
[2021-08-23 03:36] LABS: ABG BASE EXCESS 3.5 mmol/L (-2.0-3.0); ABG HCO3 31.1 mmol/L (21.0-28.0); ABG OXYGEN SATURATION 95.1 % (95.0-99.0); ABG PCO2 60 mmHg (35-48)
[2021-08-23 04:02] VITALS: BP 129/67
[2021-08-23 05:00] LABS: BASOPHILS % (AUTO) 0.5 % (0.0-5.0); LYMPHOCYTES % (AUTO) 29.8 % (21.0-51.0); MEAN CORPUSCULAR HGB CONC 29.7 g/dL (32.0-36.0); MEAN CORPUSCULAR VOLUME 94.1 fL (79-99); MONOCYTES % (AUTO) 4.6 % (3.0-13.0); NEUTROPHILS % (AUTO) 63.6 % (40.0-77.0); NUCLEATED RED BLOOD CELLS 1.8 % (0.0-0.19); PLATELET COUNT (AUTO) 283 K/uL (130-400); RED BLOOD CELL COUNT(AUTO) 4.04 MIL/uL (4.50-6.20); WHITE BLOOD COUNT (AUTO) 7.8 K/uL (4.8-10.8)
[2021-08-23] MEDS ORDERED: ENOXAPARIN SODIUM 100 MG/1 ML SQ ONE (05:30)
[2021-08-23 05:33] LABS: B-TYPE NATRIURETIC PEPTIDE 23 pg/mL (0-100)
[2021-08-23 05:38] LABS: ALBUMIN 2.5 g/dL (3.5-5.0); BILIRUBIN,TOTAL 0.5 mg/dL (0.2-1.0); CREATININE 0.6 mg/dL (0.5-1.5); MAGNESIUM 2.3 mg/dL (1.80-2.40); POTASSIUM 4.5 mmol/L (3.5-5.1); TOTAL PROTEIN, SERUM 6.9 g/dL (6.0-8.3)
[2021-08-23] MEDS: CEFTRIAXONE 1G VIAL IVP SCH ×3 (05:45→23:28)
[2021-08-23 08:00] VITALS: BP 112/52
[2021-08-23] MEDS: FUROSEMIDE 40MG VIAL IV SCH (08:40)
[2021-08-23] MEDS: FAMOTIDINE 20MG VIAL IV SCH ×2 (08:41→20:42)
[2021-08-23] MEDS: AZITHROMYCIN 500MG+NS 250ML IV SCH (08:41)
[2021-08-23] MEDS ORDERED: ENOXAPARIN SODIUM 40 MG/0.4 ML SYRINGE SQ SCH (09:00)
[2021-08-23] MEDS: CARVEDILOL 25 MG TABLET PO SCH ×2 (09:00→20:41)
[2021-08-23 12:00] VITALS: BP 115/57
[2021-08-23] MEDS: SACUBITRIL/VALSARTAN 1 EACH TABLET PO SCH (15:18)
[2021-08-23 16:00] VITALS: BP 114/58
[2021-08-23] MEDS: ACETAMINOPHEN 325 MG TAB PO PRN (18:20)
[2021-08-23 20:00] VITALS: BP 105/55
[2021-08-24] VITALS: BP 127/54
[2021-08-24 04:00] VITALS: BP 98/68
[2021-08-24 04:18] LABS: HEMATOCRIT 36.5 % (42-54); MEAN CORPUSCULAR HEMOGLOBIN 27.3 pg (27.0-33.0); MEAN CORPUSCULAR HGB CONC 29.6 g/dL (32.0-36.0); MEAN CORPUSCULAR VOLUME 92.2 fL (79-99); NUCLEATED RED BLOOD CELLS 0.9 % (0.0-0.19); RED BLOOD CELL COUNT(AUTO) 3.96 MIL/uL (4.50-6.20); RED CELL DISTRIBUTION WIDTH 22.5 % (11.0-15.5); WHITE BLOOD COUNT (AUTO) 6.9 K/uL (4.8-10.8)
[2021-08-24 04:23] LABS: CREATININE 0.6 mg/dL (0.5-1.5); MAGNESIUM 2.2 mg/dL (1.80-2.40); PHOSPHORUS 2.4 mg/dL (2.5-4.9); POTASSIUM 3.5 mmol/L (3.5-5.1)
[2021-08-24] MEDS: CEFTRIAXONE 1G VIAL IVP SCH ×3 (06:14→21:27)
[2021-08-24 08:13] VITALS: BP 127/50
[2021-08-24] MEDS: CARVEDILOL 25 MG TABLET PO SCH ×2 (09:49→21:27)
[2021-08-24] MEDS: ENOXAPARIN SODIUM 40 MG/0.4 ML SYRINGE SQ SCH (09:49)
[2021-08-24] MEDS: AZITHROMYCIN 500MG+NS 250ML IV SCH (09:50)
[2021-08-24] MEDS: FUROSEMIDE 40MG VIAL IV SCH (09:50)
[2021-08-24] MEDS: FAMOTIDINE 20MG VIAL IV SCH ×2 (09:50→21:26)
[2021-08-24 11:21] VITALS: BP 120/60
[2021-08-24] MEDS: SACUBITRIL/VALSARTAN 1 EACH TABLET PO SCH (14:58)
[2021-08-24 16:13] VITALS: BP 123/54
[2021-08-24 19:28] LABS: ABG BASE EXCESS 9.2 mmol/L (-2.0-3.0); ABG OXYGEN SATURATION 89.8 % (95.0-99.0); ABG PCO2 52 mmHg (35-48)
[2021-08-24 20:00] VITALS: BP 127/87
[2021-08-25] VITALS (7 sets, daily range): BP systolic 106–129; BP diastolic 45–72
[2021-08-25] MEDS ORDERED: IOHEXOL 350 MG/ML 100ML INFUS..BTL IV ONE (00:19)
[2021-08-25 04:33] LABS: BASOPHILS % (AUTO) 0.6 % (0.0-5.0); EOSINOPHILS % (AUTO) 1.9 % (0.0-8.0); HEMATOCRIT 35.1 % (42-54); LYMPHOCYTES % (AUTO) 36.4 % (21.0-51.0); MEAN CORPUSCULAR HEMOGLOBIN 28.1 pg (27.0-33.0); MEAN CORPUSCULAR HGB CONC 30.8 g/dL (32.0-36.0); MEAN CORPUSCULAR VOLUME 91.4 fL (79-99); MONOCYTES % (AUTO) 12.8 % (3.0-13.0); NEUTROPHILS % (AUTO) 47.7 % (40.0-77.0); PLATELET COUNT (AUTO) 254 K/uL (130-400); RED BLOOD CELL COUNT(AUTO) 3.84 MIL/uL (4.50-6.20); RED CELL DISTRIBUTION WIDTH 22.5 % (11.0-15.5); WHITE BLOOD COUNT (AUTO) 5.4 K/uL (4.8-10.8)
[2021-08-25 05:11] LABS: ALBUMIN 2.3 g/dL (3.5-5.0); BILIRUBIN,TOTAL 0.5 mg/dL (0.2-1.0); CREATININE 0.6 mg/dL (0.5-1.5); MAGNESIUM 2.1 mg/dL (1.80-2.40); PHOSPHORUS 3.2 mg/dL (2.5-4.9); POTASSIUM 3.4 mmol/L (3.5-5.1)
[2021-08-25] MEDS: CEFTRIAXONE 1G VIAL IVP SCH ×3 (06:05→20:08)
[2021-08-25 06:16] LABS: THYROID STIMULATING HORMONE 3.21 uIU/mL (0.36-3.74)
[2021-08-25 06:54] LABS: ABG BASE EXCESS 11.7 mmol/L (-2.0-3.0); ABG HCO3 38.9 mmol/L (21.0-28.0); ABG OXYGEN SATURATION 85.4 % (95.0-99.0); ABG PCO2 61 mmHg (35-48)
[2021-08-25] MEDS: FUROSEMIDE 40MG VIAL IV SCH (08:45)
[2021-08-25] MEDS: AZITHROMYCIN 500MG+NS 250ML IV SCH (08:45)
[2021-08-25] MEDS: FAMOTIDINE 20MG VIAL IV SCH ×2 (08:45→20:07)
[2021-08-25] MEDS: CARVEDILOL 25 MG TABLET PO SCH ×2 (08:46→20:07)
[2021-08-25] MEDS: ENOXAPARIN SODIUM 40 MG/0.4 ML SYRINGE SQ SCH (08:46)
[2021-08-25] MEDS: SACUBITRIL/VALSARTAN 1 EACH TABLET PO SCH (14:35)
[2021-08-25] MEDS: ACETAMINOPHEN 325 MG TAB PO PRN (17:04)
[2021-08-26 04:23] VITALS: BP 122/54
[2021-08-26 04:23] LABS: ABG BASE EXCESS 8.3 mmol/L (-2.0-3.0); ABG OXYGEN SATURATION 92.1 % (95.0-99.0); ABG PCO2 51 mmHg (35-48)
[2021-08-26 04:44] LABS: HEMATOCRIT 40.1 % (42-54); MEAN CORPUSCULAR HEMOGLOBIN 26.9 pg (27.0-33.0); MEAN CORPUSCULAR HGB CONC 29.7 g/dL (32.0-36.0); MEAN CORPUSCULAR VOLUME 90.5 fL (79-99); RED BLOOD CELL COUNT(AUTO) 4.43 MIL/uL (4.50-6.20); RED CELL DISTRIBUTION WIDTH 22.5 % (11.0-15.5); WHITE BLOOD COUNT (AUTO) 4.2 K/uL (4.8-10.8)
[2021-08-26 05:07] LABS: CREATININE 0.6 mg/dL (0.5-1.5); MAGNESIUM 2.2 mg/dL (1.80-2.40); PHOSPHORUS 3.1 mg/dL (2.5-4.9); POTASSIUM 3.9 mmol/L (3.5-5.1)
[2021-08-26] MEDS: CEFTRIAXONE 1G VIAL IVP SCH ×3 (05:49→22:00)
[2021-08-26 08:05] VITALS: BP 116/54
[2021-08-26] MEDS: ENOXAPARIN SODIUM 40 MG/0.4 ML SYRINGE SQ SCH (09:00)
[2021-08-26] MEDS ORDERED: 0.9% NACL 250ML 250 ML ONE (09:40)
[2021-08-26] MEDS: AZITHROMYCIN 500MG+NS 250ML IV SCH (10:07)
[2021-08-26] MEDS: FAMOTIDINE 20MG VIAL IV SCH ×2 (10:07→21:00)
[2021-08-26] MEDS: FUROSEMIDE 40MG VIAL IV SCH (10:08)
[2021-08-26] MEDS: ENOXAPARIN SODIUM 100 MG/1 ML SQ SCH (10:08)
[2021-08-26 11:27] VITALS: BP 121/59
[2021-08-26] MEDS: SACUBITRIL/VALSARTAN 1 EACH TABLET PO SCH (15:16)
[2021-08-26 16:18] VITALS: BP 130/66
[2021-08-26 20:54] VITALS: BP 142/64
[2021-08-27 03:33] VITALS: BP 130/59
[2021-08-27 03:53] LABS: BASOPHILS % (AUTO) 0.4 % (0.0-5.0); EOSINOPHILS % (AUTO) 2.4 % (0.0-8.0); HEMATOCRIT 38.1 % (42-54); LYMPHOCYTES % (AUTO) 40.4 % (21.0-51.0); MEAN CORPUSCULAR HEMOGLOBIN 28.3 pg (27.0-33.0); MEAN CORPUSCULAR HGB CONC 31.2 g/dL (32.0-36.0); MEAN CORPUSCULAR VOLUME 90.5 fL (79-99); MONOCYTES % (AUTO) 12.4 % (3.0-13.0); PLATELET COUNT (AUTO) 216 K/uL (130-400); RED BLOOD CELL COUNT(AUTO) 4.21 MIL/uL (4.50-6.20); RED CELL DISTRIBUTION WIDTH 22.3 % (11.0-15.5); WHITE BLOOD COUNT (AUTO) 5.3 K/uL (4.8-10.8)
[2021-08-27 04:14] LABS: ALBUMIN 2.6 g/dL (3.5-5.0); BILIRUBIN,TOTAL 0.7 mg/dL (0.2-1.0); CREATININE 0.6 mg/dL (0.5-1.5); POTASSIUM 3.9 mmol/L (3.5-5.1); TOTAL PROTEIN, SERUM 6.6 g/dL (6.0-8.3)
[2021-08-27] MEDS: CEFTRIAXONE 1G VIAL IVP SCH ×2 (06:23→15:12)
[2021-08-27 07:46] VITALS: BP 152/61
[2021-08-27] MEDS ORDERED: ENOXAPARIN SODIUM 40 MG/0.4 ML SYRINGE SQ SCH (09:00)
[2021-08-27] MEDS: AZITHROMYCIN 500MG+NS 250ML IV SCH (09:31)
[2021-08-27] MEDS: FAMOTIDINE 20MG VIAL IV SCH (09:32)
[2021-08-27] MEDS: ENOXAPARIN SODIUM 100 MG/1 ML SQ SCH (09:32)
[2021-08-27] MEDS: FUROSEMIDE 40MG VIAL IV SCH (09:32)
[2021-08-27] MEDS: HONEY 1 APPL/ML TUBE TP SCH ×2 (09:33→09:39)
[2021-08-27 10:59] VITALS: BP 128/61
[2021-08-27] MEDS ORDERED: CEPH500B PO (15:03)
[2021-08-27] MEDS: SACUBITRIL/VALSARTAN 1 EACH TABLET PO SCH (15:13)
[2021-08-27 16:04] VITALS: BP 117/72
== END 2021-08-27 18:54 | disposition home or self-care (01) | DRG 189 ==
LOC: EDH 12:43 → EDHIP 16:18 → 4BH 22:45
PROVIDERS: ADMIT Internal Medicine Pulmonary Disease; ATTEND Internal Medicine Pulmonary Disease
PROC: 5A09357 Assistance with Respiratory Ventilation, Less than 24 Consecutive Hours, Continuous Positive Airway Pressure (ICD-10-PCS; principal; 2021-08-22)
PROC: 5A09357 Assistance with Respiratory Ventilation, Less than 24 Consecutive Hours, Continuous Positive Airway Pressure (ICD-10-PCS; 2021-08-23)
PROC: 5A09357 Assistance with Respiratory Ventilation, Less than 24 Consecutive Hours, Continuous Positive Airway Pressure (ICD-10-PCS; 2021-08-24)
PROC: 5A09357 Assistance with Respiratory Ventilation, Less than 24 Consecutive Hours, Continuous Positive Airway Pressure (ICD-10-PCS; 2021-08-25)
PROC: 5A09357 Assistance with Respiratory Ventilation, Less than 24 Consecutive Hours, Continuous Positive Airway Pressure (ICD-10-PCS; 2021-08-26)
DX: J96.22 Acute and chronic respiratory failure with hypercapnia (principal); N39.0 Urinary tract infection, site not specified; E66.2 Morbid (severe) obesity with alveolar hypoventilation; Z68.44 Body mass index [BMI] 60.0-69.9, adult; L97.919 Non-pressure chronic ulcer of unspecified part of right lower leg with unspecified severity; L97.929 Non-pressure chronic ulcer of unspecified part of left lower leg with unspecified severity; J96.21 Acute and chronic respiratory failure with hypoxia; I89.0 Lymphedema, not elsewhere classified; R79.89 Other specified abnormal findings of blood chemistry; E11.9 Type 2 diabetes mellitus without complications; I83.009 Varicose veins of unspecified lower extremity with ulcer of unspecified site; E11.65 Type 2 diabetes mellitus with hyperglycemia; M41.9 Scoliosis, unspecified; M48.061 Spinal stenosis, lumbar region without neurogenic claudication; I50.9 Heart failure, unspecified; I11.0 Hypertensive heart disease with heart failure; F31.9 Bipolar disorder, unspecified; E78.00 Pure hypercholesterolemia, unspecified; T14.8XXA Other injury of unspecified body region, initial encounter; X58.XXXA Exposure to other specified factors, initial encounter; Y93.89 Activity, other specified; Y92.89 Other specified places as the place of occurrence of the external cause; Y99.8 Other external cause status
CPT/HCPCS: 36415; 36600; 71045; 71275; 80048; 80053; 81001; 82435; 82550; 82803; 82947; 82948; 83605; 83735; 83880; 84100; 84132; 84145; 84295; 84443; 84484; 85018; 85025; 85027; 85378; 85610; 85730; 87040; 87077; 87088; 87186; 93005; 93306; 93970; 94660; 99291; G0378; J0456; J0696; J1650; J1940; J2930; J3490; J7050; Q9967

== ENCOUNTER → 2021-09-01 | Outpatient (CLI) | payer OTHER | END | disposition home or self-care (01) | LOC: RAH 09:11 | PROVIDERS: ATTEND Urology | DX: G83.4 Cauda equina syndrome (principal); N13.2 Hydronephrosis with renal and ureteral calculous obstruction; Q05.7 Lumbar spina bifida without hydrocephalus; Z98.2 Presence of cerebrospinal fluid drainage device | CPT/HCPCS: 74176 ==